=== PATIENT | female | born 1995 ===

== ENCOUNTER 2017-06-10 16:57 | Emergency (ER) | payer OTHER ==
[2017-06-10 17:04] VITALS: BP 129/60; PULSE 82; RESP 16; TEMP 98.2; BMI 25.7
--- NOTE | 2017-06-10 17:32 | ED PDOC ---
Arrival/HPI - General Chief Complaint: Lower Extremity Problem/Injury Time Seen by Provider: 06/10/17 17:03 - History of Present Illness Narrative History of Present Illness (Text): 06/10/17 17:24 22 year old female presents to the emergency room after she stepped on a sea urchin in [place] 3 days ago. She stepped on it only with her left big toe. She used tweezers to remove the spines of the sea urchins. The toe was originally painful and inflamed, but has improved over the last day. She is still experiencing pain when she places pressure on her left great toe. She just returned home today and wanted to get her toe checked out. Denies f/c, n/v , d/c, sob, cp, lightheadednes, dizziness, numbness or tingling. (Alcides Leonard) Associated Symptoms (Text): 06/10/17 17:47 Seen and examined with the resident. Our history and physical exam reveals a young woman who was in [place] 3 days ago and stepped on a sea arching with her left big toe. Her pain and swelling has markedly improved. She does not have a foreign body sensation. (Gian Moreland) Past Medical History - Provider Review Nursing Documentation Reviewed: Yes - Travel History Have you recently traveled outside [place] w/in the past 3 mons?: Yes If Yes, travel location?: [place] - Infectious Disease Hx of Infectious Diseases: None - Psychiatric Hx Substance Use: No - Anesthesia Hx Anesthesia: No Family/Social History - Physician Review Nursing Documentation Reviewed: Yes Family/Social History: Unknown Family HX Smoking Status: Never Smoked Hx Alcohol Use: No Hx Substance Use: No Allergies/Home Meds Allergies/Adverse Reactions: Allergies No Known Allergies Allergy (Verified 06/10/17 17:04) Home Medications: Home Meds Medication Instructions Recorded Confirmed No Known Home Med 06/10/17 06/10/17 Review of Systems - Physician Review All systems were reviewed & negative as marked: Yes - Review of Systems Constitutional: absent: Fatigue, Fevers ENT: Normal. absent: Sore Throat Respiratory: absent: SOB, Cough Cardiovascular: absent: Chest Pain, Calf Pain Gastrointestinal: absent: Abdominal Pain, Constipation, Diarrhea, Nausea, Vomiting Skin: Cellulitis (resolved), Other (puncture wounds on plantar surface of left big toe) Neurological: Normal. absent: Dizziness, Focal Weakness Psychiatric: Normal Physical Exam Vital Signs Reviewed: Yes Temperature: Afebrile Blood Pressure: Normal Pulse: Regular Respiratory Rate: Normal Appearance: Positive for: Well-Appearing, Non-Toxic, Comfortable Pain Distress: None Mental Status: Positive for: Alert and Oriented X 3 - Systems Exam Head: Present: Atraumatic, Normocephalic Extroacular Muscles: Present: EOMI Conjunctiva: Present: Normal Mouth: Present: Moist Mucous Membranes Nose (External): Present: Atraumatic. No: Abrasion Neck: Present: Normal Range of Motion Skin: Present: Warm, Dry, Normal Color, Other (puncture wounds on plantar surface of left big toe; tender to palpation). No: Rashes, Induration, Hot, Cold Psychiatric: Present: Alert, Oriented x 3, Normal Insight, Normal Concentration Vital Signs Temp Pulse Resp BP Pulse Ox 06/10/17 17:04 98.2 F 82 16 129/60 99 Medical Decision Making ED Course and Treatment: 06/10/17 17:40 Patient Seen With Resident: In agreement with resident note and more details are present in their notes. Patient was seen and evaluated with resident, came up with plan and treatment together. (Gian Moreland) 06/10/17 17:36 Sea Urchin Sting - no signs of infection at this time - Foot Xray - shows multiple retained sea urchin spines Dispo: Home. Patient is to follow up with podiatry, Dr. Chester. If pain worsens or patient notices any signs of infection, she is to return to the ED. (Alcides Leonard) - RAD Interpretation Radiology Orders: 06/10/17 17:23 FOOT LEFT GREAT TOE ROUTINE [RAD] Stat Disposition/Present on Arrival - Present on Arrival Any Indicators Present on Arrival: No History of DVT/PE: No History of Uncontrolled Diabetes: No Urinary Catheter: No History of Decub. Ulcer: No History Surgical Site Infection Following: None - Disposition Have Diagnosis and Disposition been Completed?: Yes Disposition Time: 18:00 Patient Plan: Discharge - Disposition Diagnosis: Marine animal sting Disposition: HOME/ ROUTINE Patient Problems: Current Active Problems Problem Status Onset Marine animal sting Acute Condition: GOOD Discharge Instructions (ExitCare): Marine Animal Bite or Sting (ED) Referrals: Jared Pulido MD [Primary Care Provider] - Follow up with primary Mauri Chester DPM [Staff Provider] - Follow up with primary Forms: [employer] (Maldivian)
[2017-06-10 18:25] VITALS: O2SAT 98
--- NOTE | 2017-06-21 22:12 | RAD ---
PROCEDURE: Radiographs of the left great toe. TECHNIQUE:: AP radiograph of the left foot, with oblique and lateral view of the left great toe. COMPARISON: None. FINDINGS: BONES: There is no acute displaced fracture or bone destruction. Bone alignment and mineralization are normal. JOINTS: Normal. SOFT TISSUES: Normal. OTHER FINDINGS: None. IMPRESSION: No acute fracture or dislocation.
== END 2017-06-10 18:25 | disposition home or self-care (01) ==
LOC: ED 16:57
DX: S99.922A Unspecified injury of left foot, initial encounter (principal); W56.81XA Bitten by other nonvenomous marine animals, initial encounter